=== PATIENT | male | born 1945 | race Hispanic/Latino ===

== ENCOUNTER → 2023-11-16 | Outpatient (CLI) | payer OTHER, MEDICARE | END | disposition home or self-care (01) | LOC: SHCH 09:00 | PROVIDERS: ATTEND Internal Medicine Cardiovascular Disease | DX: I35.8 Other nonrheumatic aortic valve disorders (principal); I51.7 Cardiomegaly; I51.89 Other ill-defined heart diseases; I20.0 Unstable angina | CPT/HCPCS: 93306 ==

== ENCOUNTER 2024-04-06 05:34 | Day surgery (SDC) | payer OTHER, MEDICARE ==
[2024-04-02 12:11] LABS: BASOPHILS # (AUTO) 0.09 K/uL (0.00-0.20); BASOPHILS % (AUTO) 1.1 % (0.0-5.0); EOSINOPHILS # (AUTO) 1.47 K/uL (0.00-0.70); EOSINOPHILS % (AUTO) 17.5 % (0.0-8.0); HEMATOCRIT 40.5 % (42-54); IMMATURE GRANULOCYTE ABSOLUTE 0.04 K/uL (0-1); LYMPHOCYTES # (AUTO) 2.2 K/uL (1.0-4.8); MEAN CORPUSCULAR HEMOGLOBIN 31.8 pg (27.0-33.0); MEAN CORPUSCULAR HGB CONC 34.1 g/dL (32.0-36.0); MEAN CORPUSCULAR VOLUME 93.3 fL (79-99); MONOCYTES # (AUTO) 0.7 K/uL (0.1-1.0); MONOCYTES % (AUTO) 8.5 % (3.0-13.0); NEUTROPHILS # (AUTO) 3.9 K/uL (1.8-7.7); NEUTROPHILS % (AUTO) 46.4 % (40.0-77.0); PLATELET COUNT (AUTO) 178 K/uL (130-400); RED BLOOD CELL COUNT(AUTO) 4.34 MIL/uL (4.50-6.20); RED CELL DISTRIBUTION WIDTH 13.4 % (11.0-15.5); WHITE BLOOD COUNT (AUTO) 8.4 K/uL (4.8-10.8)
[2024-04-02 12:18] LABS: INR 1.01 (0.85-1.15); PROTHROMBIN TIME 10.9 SEC (9.6-11.6)
[2024-04-02 12:20] LABS: PARTIAL THROMBOPLASTIN TIME 26.5 SEC (26.3-35.5)
[2024-04-02 12:23] LABS: POTASSIUM 4.3 mmol/L (3.5-5.1)
[2024-04-02 12:46] LABS: B-TYPE NATRIURETIC PEPTIDE 81 pg/mL (0-100)
[2024-04-02 12:53] VITALS: BP 119/71; PULSE 67; RESP 18; TEMP 97.9
[2024-04-02 13:42] LABS: APPEARANCE,URINE CLEAR (CLEAR); BILIRUBIN,URINE NEGATIVE (NEGATIVE); COLOR,URINE YELLOW (YELLOW); GLUCOSE, URINE (UA) NEGATIVE (NEGATIVE); KETONES,URINE NEGATIVE (NEGATIVE); LEUKOCYTE ESTERASE ,URINE NEGATIVE Leu/uL (NEGATIVE); NITRATE,URINE NEGATIVE (NEGATIVE); OCCULT BLOOD,URINE NEGATIVE (NEGATIVE); PROTEIN,URINE NEGATIVE (NEGATIVE); UROBILINOGEN,URINE 0.2 mg/dL (0.2-1.0)
[2024-04-02 13:44] LABS: ADD UA MICROSCOPIC NO
[~2024-04-06] VITALS: Ht 152.4 cm; Wt 70.1 kg
[2024-04-06] VITALS (11 sets, daily range): BP systolic 104–138; BP diastolic 51–69; PULSE 56–71; RESP 9–17; TEMP 97.4–98
[~2024-04-06 05:34] MED LIST: 0.9% NACL 500ML IV.SOLN 500 ML IV SCH
[2024-04-06] MEDS: 0.9%NACL 1000ML 1,000 ML IV ONE (06:39)
[2024-04-06] MEDS ORDERED: AMLO-257 PO (06:47)
[2024-04-06] MEDS ORDERED: METO-408 PO (06:47)
[2024-04-06] MEDS ORDERED: LISI2.5T13 PO (06:47)
[2024-04-06] MEDS ORDERED: LEVO88CA4 PO (06:47)
[2024-04-06] MEDS ORDERED: GLYBURIDE PO (06:47)
[2024-04-06] MEDS ORDERED: IOHEXOL 350 MG/ML 100ML INFUS..BTL IV ONE (07:27)
[2024-04-06] MEDS ORDERED: LIDOCAINE HCL 400MG/20ML VIAL ONE (07:27)
[2024-04-06] MEDS ORDERED: HEParin-NS 1,000 UNIT/500 ML 1,000 ML IV ONE (07:28)
[2024-04-06] MEDS ORDERED: MIDAZOLAM HCL 1 MG/ML 2ML VIAL ONE (07:31)
[2024-04-06] MEDS ORDERED: FENTanyl CITRate PF 50 MCG/1 ML 2ML VIAL ONE (07:31)
[2024-04-06] MEDS ORDERED: NITROGLYCERIN 50MG VIAL ONE (07:33)
[2024-04-06] MEDS ORDERED: BIVALIRUDIN 250 MG/VIAL IV ONE (07:37)
[2024-04-06] MEDS ORDERED: IOHEXOL-350 50ML VIAL IV ONE (07:44)
[2024-04-06] MEDS ORDERED: GLUCAGON 1MG KIT 1 MG ML IM PRN (08:30)
[2024-04-06] MEDS ORDERED: DEXTROSE 50%-WATER 50 ML DISP.SYRIN IV PRN (08:30)
[2024-04-06] MEDS: 0.9%NACL 1000ML 1,000 ML IV SCH (08:39)
[2024-04-06] MEDS ORDERED: INSULIN humuLIN R 100 UNIT/ML 3ML SQ SCH (11:30)
== END 2024-04-06 12:35 | disposition home or self-care (01) ==
LOC: DAH 05:34
PROVIDERS: ATTEND Internal Medicine Cardiovascular Disease
DX: I25.118 Atherosclerotic heart disease of native coronary artery with other forms of angina pectoris (principal); I25.5 Ischemic cardiomyopathy; I87.2 Venous insufficiency (chronic) (peripheral); I49.9 Cardiac arrhythmia, unspecified; E11.9 Type 2 diabetes mellitus without complications; I11.0 Hypertensive heart disease with heart failure; I50.22 Chronic systolic (congestive) heart failure; E03.9 Hypothyroidism, unspecified; E78.5 Hyperlipidemia, unspecified; Z79.01 Long term (current) use of anticoagulants; Z79.899 Other long term (current) drug therapy
CPT/HCPCS: 80048; 83880; 85025; 85610; 85730; 81003; 36415; 71045; 93005; 93458; 36215; 82948 ×2; 75710; C1894 ×2; C1760; J3010; J3490 ×2; J7030; J2250; J1644; Q9967; A4215; A4222; A4221; A4663; A4216; A4606; Q9965; A4223 ×3; 96360; 96361; 99156; 99157; J0583

== ENCOUNTER → 2024-08-04 | Outpatient (CLI) | payer OTHER, MEDICARE ==
[~2024-08-04] MED LIST changes: -0.9% NACL 500ML IV.SOLN 500 ML IV SCH; +LEVO88CA4 PO; +METF-444 PO
== END | disposition home or self-care (01) ==
LOC: SHCH 15:06
PROVIDERS: ATTEND Internal Medicine Cardiovascular Disease
DX: R22.2 Localized swelling, mass and lump, trunk (principal); I87.2 Venous insufficiency (chronic) (peripheral)
CPT/HCPCS: 93971

== ENCOUNTER → 2024-10-16 | Outpatient (CLI) | payer OTHER, MEDICARE | END | disposition home or self-care (01) | LOC: SHCH 10:03 | PROVIDERS: ATTEND Internal Medicine Cardiovascular Disease | DX: I08.3 Combined rheumatic disorders of mitral, aortic and tricuspid valves (principal); I25.5 Ischemic cardiomyopathy | CPT/HCPCS: 93306 ==

== ENCOUNTER → 2025-03-17 | Outpatient (CLI) | payer OTHER, MEDICARE ==
[~2025-03-17] MED LIST changes: +IOHEXOL 350 MG/ML 100ML INFUS..BTL IV ONE; -LEVO88CA4 PO; +LEVO88CA5 PO
--- NOTE | 2025-03-18 12:22 | HMCIMG ---
EXAM: CT Cardiac Angiogram. CLINICAL HISTORY: Chest pain. TECHNIQUE: Thin collimated axial CT cardiac angiogram images were obtained. A CT scan is done according to ALARA (As Low As Reasonably Achievable). COMPARISON: None provided. FINDINGS: Coronary CT Angiography: Dominance of the coronary artery system: Possibly codominant. Left Main: The left main is a normal caliber vessel that gives rise to the LAD and circumflex arteries. There are a couple of small eccentric calcified plaques in the left main causing mild narrowing of up to 10%. Left Anterior Descending Artery /T/ Diagonals: Multifocal eccentric calcified plaques in the proximal and mid LAD causing varying degrees of narrowing of maximum up to 90% at the origin. The distal LAD is not opacified. Patent left internal mammary arterial graft terminating in the anterior interventricular wall. Left Circumflex Artery /T/ Obtuse Marginals: Multifocal eccentric calcified plaques in the proximal and mid LCX, causing varying degrees of narrowing of maximum up to 90% in the mid part. The obtuse marginal branches are faintly opacified. Right Coronary Artery: Patchy calcified and noncalcified plaques in the proximal and mid right coronary artery, causing varying degrees of narrowing of up to 50%. The acute marginal normal in course shows no plaques or stenosis. There are 2 faintly opacified posterior descending arteries arising from the right coronary artery and left circumflex artery. The posterolateral branch likely arises from a vessel from the upper abdomen. Cardiac Morphology: Both atria and ventricles are normal. The mitral valve leaflets are normal. The pericardium is normal, and there is no pericardial effusion. The aortic valve is tricuspid. The visualized thoracic aorta is normal in course and caliber. Extracardiac findings: The visualised pulmonary arteries appear normal in caliber. The visualised lung parenchyma is unremarkable. The included portion of the upper abdomen appears normal. IMPRESSION: 1. Triple-vessel coronary artery disease as described. Patent left internal mammary arterial graft. 2. Possibly codominant circulation. /[place]
== END | disposition home or self-care (01) ==
LOC: RAH 08:45
PROVIDERS: ATTEND Internal Medicine Cardiovascular Disease
DX: I25.10 Atherosclerotic heart disease of native coronary artery without angina pectoris (principal); R07.9 Chest pain, unspecified; I25.5 Ischemic cardiomyopathy
CPT/HCPCS: 75574; Q9967

== ENCOUNTER 2025-05-28 05:48 | Day surgery (SDC) | payer OTHER, MEDICARE ==
[2025-05-26 10:00] LABS: IMMATURE GRANULOCYTE ABSOLUTE 0.04 K/uL (0-1); NUCLEATED RED BLOOD CELLS 0.0 % (0.0-0.19); PLATELET COUNT (AUTO) 226 K/uL (130-400); RED BLOOD CELL COUNT(AUTO) 4.13 MIL/uL (4.50-6.20); RED CELL DISTRIBUTION WIDTH 14.6 % (11.0-15.5); WHITE BLOOD COUNT (AUTO) 6.2 K/uL (4.8-10.8)
[2025-05-26 10:08] VITALS: BP 104/58; PULSE 75; RESP 18; TEMP 97.3
[2025-05-26 10:08] LABS: CREATININE 0.7 mg/dL (0.5-1.3); GLOMERULAR FILTR. RATE CALC 93.0 mL/min (>90); GLUCOSE,RANDOM 211.0 mg/dL (70-105); SODIUM SERUM 137.0 mmol/L (136-145); UREA NITROGEN, BLOOD 23.0 mg/dL (7-18)
[2025-05-26 10:10] LABS: INR 0.97 (0.85-1.15)
[2025-05-26 10:14] LABS: ADD UA MICROSCOPIC YES; APPEARANCE,URINE CLEAR (CLEAR); GLUCOSE, URINE (UA) >=1000 mg/dL (NEGATIVE); LEUKOCYTE ESTERASE ,URINE NEGATIVE Leu/uL (NEGATIVE); NITRATE,URINE NEGATIVE (NEGATIVE); OCCULT BLOOD,URINE NEGATIVE (NEGATIVE)
[2025-05-26 10:20] LABS: SQUAMOUS EPITHELIAL CELL,UR RARE /HPF (0-2)
--- NOTE | 2025-05-26 21:44 | HMCIMG ---
EXAM: CHEST RADIOGRAPH, 1 VIEW Technique: Posteroanterior single frontal view of the chest. Clinical Information: Pre-operative evaluation. Findings: Lungs and large airways: Clear without focal airspace consolidation; no pulmonary edema. Pleura: No pleural effusion or pneumothorax. Heart and mediastinum: Cardiomediastinal silhouette within normal limits for a single frontal view. Postoperative median sternotomy changes are present. Shefali: No hilar enlargement. Diaphragm and costophrenic angles: Costophrenic angles are sharp bilaterally; no subdiaphragmatic free air. Bones and soft tissues: Degenerative changes of the thoracic spine; no acute osseous abnormality identified. Impression: 1. No acute cardiopulmonary process. 2. Post-sternotomy postoperative changes. 3. Degenerative changes of the thoracic spine. /[place]
[2025-05-28] VITALS (21 sets, daily range): BP systolic 105–144; BP diastolic 60–85; PULSE 60–74; RESP 10–17; TEMP 97.6–97.8
[~2025-05-28] VITALS: Ht 160 cm; Wt 61.9 kg
[~2025-05-28 05:48] MED LIST changes: +AMLO-257 PO; +ASPI-1005 PO; +DAPA1TAB3 PO; +FURO20TA4 PO; -IOHEXOL 350 MG/ML 100ML INFUS..BTL IV ONE; +MELO-106 PO; -METF-444 PO; +SACU1TAB PO
[2025-05-28] MEDS: 0.9%NACL 1000ML 1,000 ML IV SCH (06:28)
[2025-05-28] MEDS ORDERED: IOHEXOL 350 MG/ML 100ML INFUS..BTL IV ONE (07:18)
[2025-05-28] MEDS ORDERED: HEParin-NS 1,000 UNIT/500 ML 1,000 ML IV ONE (07:18)
[2025-05-28] MEDS ORDERED: LIDOCAINE HCL 400MG/20ML VIAL ONE (07:18)
[2025-05-28] MEDS ORDERED: NITROGLYCERIN 50MG VIAL ONE (07:19)
[2025-05-28] MEDS ORDERED: MIDAZOLAM HCL 1 MG/ML 2ML VIAL ONE ×2 (07:35→08:29)
[2025-05-28] MEDS ORDERED: IOHEXOL-350 75 ML VIAL IV ONE (08:10)
[2025-05-28] MEDS ORDERED: BIVALIRUDIN 250 MG/VIAL IV ONE (08:22)
[2025-05-28] MEDS ORDERED: HEParin-NS 1,000 UNIT/500 ML 500 ML IV ONE (08:32)
[2025-05-28] MEDS ORDERED: IOHEXOL-350 50ML VIAL IV ONE ×2 (09:00→09:08)
[2025-05-28] MEDS ORDERED: ASPIRIN 81MG CHEW TAB ONE (09:17)
[2025-05-28] MEDS ORDERED: 0.9%NACL 1000ML 1,000 ML IV SCH (09:30)
[2025-05-28] MEDS ORDERED: NITROGLYCERIN 0.4 MG SL TAB SL PRN (09:30)
[2025-05-28] MEDS ORDERED: DEXTROSE 50%-WATER 50 ML DISP.SYRIN IV PRN (09:30)
[2025-05-28] MEDS ORDERED: GLUCAGON 1MG KIT 1 MG ML IM PRN (09:30)
--- NOTE | 2025-05-28 09:35 | PRN ---
PROCEDURES: 1. Right common femoral arterial sheath placement. 2. Selective coronary angiogram. 3. Left heart catheterization. 4. Left ventriculogram. 5. Saphenous vein graft cannulation x3 6. Cannulation of left internal mammary artery with contrast injection 7. Angioplasty and stent placement to clark-lad anastomosis with placement of a 2.5 mm x 23 mm Xience stent deployed to 2.71 mm INDICATION: Abnormal stress test Ischemic cardiomyopathy DESCRIPTION OF PROCEDURE: The patient was brought to the catheterization suite and prepped and draped in sterile fashion. IV was started, and not already in place and both groins were exposed for arterial access. 1% lidocaine was used for local anesthesia and then a micropuncture kit was used to gain access once free-flowing blood was seen, modified Seldinger technique was utilized to place a 6 Indian sheath into the right common femoral artery. Next, preformed JL4 and JR 4 catheters were used to selectively engage the [place] coronary vessels and multiple hand contrast injections were performed in different views to define the coronary anatomy. The JR4 catheter was used to selectively engage the left subclavian artery and then a 0.035 in J-wire exchange length was then placed and advanced to the brachial artery on the left. Next an IM catheter was used to selectively engage the left internal mammary artery and contrast injections were performed to define this anatomy as well. An LCB catheter was also used to cannulate the saphenous vein graft to ramus intermediate and obtuse marginal branch system. At end of case a 6 Indian angled pigtail was used across aortic valve pressure measurements were obtained and then a left ventriculogram was done in the 30 WEBER position. Next pullback method was performed. At end of case sheath was sewn into place and no complications occurred. Please see findings below and interventional report below thank you FINDINGS: The left main artery trifurcates into the LAD large ramus intermediate and left circumflex vessel. There was no significant stenosis noted in the left main artery. The proximal LAD has an 80% stenosis followed by an 85-90% stenosis noted of the mid LAD after a small diagonal branch system. There was competitive flow noted in the LAD and a CLARK-lad is noted to be patent with an 85-90% stenosis noted at the anastomosis site and just distal to anastomosis site. The ramus intermediate is a large vessel with no significant stenosis present upon this angiogram. Saphenous vein graft to ramus intermediate is noted to be occluded. The left circumflex artery in its mid section is 100% occluded and this is a codominant system giving rise to the left posterolateral branch. The saphenous vein graft to the left circumflex artery is noted to be occluded. The right coronary artery is a codominant system giving rise to the PDA with the entirety of the RCA with stenosis of 80-90% followed by a 90% stenosis noted at the proximal PDA. The saphenous vein graft to the PDA is noted to be occluded. Ejection fraction is estimated at 40%. There was no evidence of aortic stenosis or mitral regurgitation. LVEDP is normal. INTERVENTIONAL REPORT: [] After diagnostic coronary angiography was performed it was felt intervention should be done to clark-lad. Therefore a 6 Indian IM catheter was then placed into the or near the left internal mammary artery and we were able to cannulate the mammary artery with a choice PT extra-support 0.014 in which we were able to get to the anastomosis site. There was however a prolapsed wire and I could not straighten it out so I then went in with a 2.5 mm x 15 mm balloon over wire into the CLARK and once we are at the prolapse wire we then straightened it out and I was able to get the choice PT extra-support wire into the [place] LAD after anastomosis site without difficulty. Next that 2.5 mm x 15 mm balloon was then advanced to the anastomosis site and 2 inflations were done up to 2.37 mm x2 inflations 30 seconds each. Follow up contrast injection with no evidence of dissection or perforation and then I went in with a 2.5 mm x 23 mm Xience stent in that same region and deployed it at the CLARK-lad anastomosis. Follow up contrast injection with no evidence of dissection or perforation with YANDEL 3 flow noted. RECOMMENDATIONS: [] Patient will be hydrated here for the next 6 hours. Sheath will be pulled in 2 hours We will initiate aspirin and clopidogrel uninterrupted for a minimum of 3 months We will initiate rosuvastatin at 5 mg nightly Patient will come back to see us in the clinic in 1-2 weeks NIDHI CHURCHILL MD May 28, 2025 09:35
--- NOTE | 2025-05-28 11:02 | NUR ---
USING URINAL 300CC. YELLOW URINE AND CLEAR.
[2025-05-28] MEDS ORDERED: ATROPINE 1MG SYG IVP ONE (11:35)
--- NOTE | 2025-05-28 11:42 | NUR ---
IN ROOM WITH AMERICA MARROQUIN. FELT FOR PEDAL PULSES. RIGHT GROIN 6FRENCH SHEATH INTACT. REMOVED TEGADERM DRESSING. CUT THE SUTURE TO THE RIGHT SHEATH. AMERICA MARROQUIN FELT FOR FEMORAL PULSE. FELT PEDAL PULSES. AMERICA MARROQUIN PULLED 6 GEORGIAN SHEATH AT 1142 APPLIED D-STAT. HELD PRESSURE IN ROOM UNTIL 1200 AND CHECKED PEDAL PULSES. PATIENT AWAKE AND ORIENTED. PATIENT DENIES PAIN. GROIN SOFT TO TOUCH. NO REDNESS OR SWELLING. D-STAT DRESSING APPLIED TO RIGHT GROIN. REINFORCED D-STAT DRESSING WITH 4X4 STERILE TEGADERM. NO ACTIVE BLEEDING OR DRAINAGE NOTED. NO REDNESS OR SWELLING NOTED.
--- NOTE | 2025-05-28 13:10 | NUR ---
USING URINAL 500CC VOIDED. YELLOW URINE.
== END 2025-05-28 15:30 | disposition home or self-care (01) ==
LOC: DAH 05:48
PROVIDERS: ATTEND Internal Medicine Cardiovascular Disease
DX: R94.39 Abnormal result of other cardiovascular function study (principal); I25.5 Ischemic cardiomyopathy; I25.119 Atherosclerotic heart disease of native coronary artery with unspecified angina pectoris; I25.709 Atherosclerosis of coronary artery bypass graft(s), unspecified, with unspecified angina pectoris; I10 Essential (primary) hypertension; E11.9 Type 2 diabetes mellitus without complications; E03.9 Hypothyroidism, unspecified; E78.5 Hyperlipidemia, unspecified; I87.2 Venous insufficiency (chronic) (peripheral); I49.9 Cardiac arrhythmia, unspecified; I73.9 Peripheral vascular disease, unspecified; Z95.1 Presence of aortocoronary bypass graft; Z79.01 Long term (current) use of anticoagulants; Z79.82 Long term (current) use of aspirin; Z79.899 Other long term (current) drug therapy
CPT/HCPCS: 80048; 83880; 85025; 85610; 85730; 81001; 36415; 71045; 82948; 93459; 99156; 99157 ×6; C9604; C1769 ×2; C1887; C1894 ×2; C1874; C1725; J3010; J3490 ×2; J7030; J2250 ×2; J1644 ×2; J0583; Q9967 ×3; A4215; A4222; A4221; A4663; A4216; A4606; Q9965 ×2; A4223 ×3; 96360; 96361; J0461